=== PATIENT | male | born 1980 | race American Indian/Alaskan Native ===

== ENCOUNTER 2016-09-05 00:24 | Emergency (ER) | payer OTHER ==
[2016-09-05] MEDS ORDERED: TYLENOL ONE (00:37)
[2016-09-05] MEDS ORDERED: TYLENOL PO ONE (00:49)
[2016-09-05 01:23] LABS: Hematocrit 45.9 % (35.5-45.6); Hemoglobin 15.4 gm/dl (11.8-15.2); Mean Corpuscular HGB Conc 34 % (32-34); Mean Corpuscular Hemoglobin 28 pg (28-32); Mean Corpuscular Volume 83 fl (84-94); Platelet Count 176 K/mm3 (140-440); Red Blood Count 5.54 M/mm3 (3.65-5.03); Red Cell Distribution Width 13.6 % (13.2-15.2); White Blood Count 10.6 K/mm3 (4.5-11.0)
[2016-09-05 01:36] LABS: Alanine Aminotransferase 33 units/L (7-56); Albumin 4.4 g/dL (3.9-5); Albumin/Globulin Ratio 1.5 %; Alkaline Phosphatase 92 units/L (35-129); Anion Gap 18 mmol/L; BUN/Creatinine Ratio 13.63; Bilirubin,Total 0.9 mg/dL (0.1-1.2); Blood Urea Nitrogen 15 mg/dL (9-20); Calcium 9.5 mg/dL (8.4-10.2); Carbon Dioxide 24 mmol/L (22-30); Chloride 99.5 mmol/L (98-107); Glucose 121 mg/dL (75-100); Lipase 17 units/L (13-60); Potassium 3.8 mmol/L (3.6-5.0); Sodium 138 mmol/L (137-145); Total Protein 7.3 g/dL (6.3-8.2)
--- NOTE | 2016-09-05 02:14 | XRay Report ---
FINAL REPORT PROCEDURE: XR ABDOMEN 2V TECHNIQUE: Abdominal radiograph, single supine AP view. HISTORY: abd pn, send for report COMPARISON: No prior studies are available for comparison. FINDINGS: Bowel gas pattern:There is no bowel obstruction, fecal impaction or bowel wall thickening.. Masses or calcifications:None. Bony structures:No significant abnormality. Other:There is no free air.. IMPRESSION: No acute abnormality
[2016-09-05 03:20] LABS: Bacteria,Urine 1+ /HPF (Negative); Bilirubin,Urine NEG (Negative); Blood,Urine SM (Negative); Ketones,Urine NEG (Negative); Leukocyte Esterase,Urine NEG (Negative); Mucus,Urine FEW /HPF; Nitrite,Urine NEG (Negative); Protein,Urine <15 mg/dL mg/dL (Negative); Urobilinogen,Urine < 2.0 mg/dL (<2.0)
[2016-09-05] MEDS ORDERED: ZOFRAN IV ONE (03:28)
[2016-09-05] MEDS ORDERED: MORPHINE IV ONE (03:28)
--- NOTE | 2016-09-05 03:36 | Emergency Department Report ---
ED Abdominal Pain HPI - General Chief Complaint: Abdominal Pain Stated Complaint: STOMACH PAIN/CRAMPS Time Seen by Provider: 09/05/16 03:29 Source: patient Mode of arrival: Ambulatory Limitations: No Limitations - History of Present Illness Initial Comments: This is a previously healthy 36-year-old gentleman who reports gradual onset epigastric pain over the last 24 hours. He states that it was initially bearable but is gone to the point where it is completely unbearable. He states that the pain is only in the epigastric region. He's has anorexia due to it. He is not having any nausea vomiting. He denies any diarrhea. He denies any fevers or trauma. He denies any history of GI ulcers in general. He has not had any abdominal surgeries before. He describes the pain is sharp in nature. MD Complaint: abdominal pain Severity scale (0 -10): 7 - Related Data Previous Rx's Medication Instructions Recorded Last Taken Type Omeprazole 40 mg PO DAILY #30 capsule. 09/05/16 Unknown Rx Ondansetron [Zofran TAB] 4 mg PO Q8HR PRN #10 tablet 09/05/16 Unknown Rx oxyCODONE /ACETAMINOPHEN [Percocet 1 tab PO Q4HR PRN #30 tab 09/05/16 Unknown Rx 5/325] Allergies Allergy/AdvReac Type Severity Reaction Status Date / Time No Known Allergies Allergy Verified 09/05/16 00:38 ED Review of Systems ROS: Stated complaint: STOMACH PAIN/CRAMPS Other details as noted in HPI Comment: All other systems reviewed and negative Constitutional: denies: chills, fever Eyes: denies: eye pain, eye discharge, vision change ENT: denies: ear pain, throat pain Respiratory: denies: cough, shortness of breath, wheezing Cardiovascular: denies: chest pain, palpitations Endocrine: no symptoms reported Gastrointestinal: abdominal pain, other (anorexia). denies: nausea, diarrhea Genitourinary: denies: urgency, dysuria Musculoskeletal: denies: back pain, joint swelling, arthralgia Skin: denies: rash, lesions Neurological: denies: headache, weakness, paresthesias Psychiatric: denies: anxiety, depression Hematological/Lymphatic: denies: easy bleeding, easy bruising ED Past Medical Hx - Past Medical History Previous Medical History?: No - Surgical History Past Surgical History?: Yes Hx Appendectomy: Yes - Social History Smoking Status: Never Smoker Substance Use Type: None - Medications Home Medications: Home Medications Medication Instructions Recorded Confirmed Last Taken Type Omeprazole 40 mg PO DAILY #30 capsule. 09/05/16 Unknown Rx Ondansetron [Zofran TAB] 4 mg PO Q8HR PRN #10 tablet 09/05/16 Unknown Rx oxyCODONE /ACETAMINOPHEN [Percocet 1 tab PO Q4HR PRN #30 tab 09/05/16 Unknown Rx 5/325] ED Physical Exam - General Limitations: No Limitations General appearance: alert, in distress (due to pains) - Head Head exam: Present: atraumatic, normocephalic - Eye Eye exam: Present: normal appearance, EOMI. Absent: scleral icterus - ENT ENT exam: Present: normal exam, normal orophraynx, mucous membranes moist - Neck Neck exam: Present: normal inspection. Absent: tenderness, lymphadenopathy - Respiratory Respiratory exam: Present: normal lung sounds bilaterally. Absent: respiratory distress, wheezes, rales - Cardiovascular Cardiovascular Exam: Present: regular rate, normal rhythm. Absent: systolic murmur, diastolic murmur, rubs, gallop - GI/Abdominal GI/Abdominal exam: Present: soft, tenderness (epigastric region with some voluntary guarding. No rebound is appreciated no organomegaly is appreciated.) , normal bowel sounds - Rectal Rectal exam: Present: deferred - Extremities Exam Extremities exam: Present: normal inspection - Back Exam Back exam: Present: normal inspection - Neurological Exam Neurological exam: Present: alert, oriented X3 - Psychiatric Psychiatric exam: Present: normal affect, normal mood - Skin Skin exam: Present: warm, dry, intact, normal color. Absent: rash ED Course Vital Signs 09/05/16 09/05/16 09/05/16 00:27 01:47 02:00 Temperature 98.1 F Pulse Rate 98 H 76 75 Respiratory 20 41 H 25 H Rate Blood Pressure 123/81 Blood Pressure 167/98 [Right] O2 Sat by Pulse 100 98 Oximetry 09/05/16 09/05/16 02:30 03:00 Temperature Pulse Rate 79 88 Respiratory 29 H 32 H Rate Blood Pressure 133/83 124/83 Blood Pressure [Right] O2 Sat by Pulse 96 95 Oximetry - Reevaluation(s) Reevaluation #1: 09/05/16 04:36 This patient's pain is way out of proportion what I would anticipate with lab studies that I am seeing. He is legitimately uncomfortable. His pain is very reproducible in the epigastric region. Plain film is unremarkable in general. With normal bowel gas pattern. I would question peptic ulcer disease but I'm not used to seeing pains be so reproducible with palpation. I did give Protonix for this possibility. Awaiting CT scan for further evaluation due to the level of his discomfort. Labs are unremarkable as is urinalysis. Reevaluation #2: 09/05/16 06:02 CT examination read by the radiologist demonstrates 2 mm stone in the upper pole of the left kidney. Next mucosal thickening of the stomach antrum. This could be due to gastritis. There is no mass or obstruction however. There is a comment about faint induration of the mesentery with mild adenopathy suggesting possible mesenteric adenitis versus mesenteric panniculitis. Reevaluation #3: 09/05/16 06:28 CT results are noted. This correlates well with what I would anticipate for patient's pain. I suspect he does have a component of gastritis. I suspect this is a today's mesenteric adenitis as well. Mesenteric adenitis is reasonable exfoliation for his pain in his abdomen. He subjectively is feeling much improved after his medications here. I will continue to have him on an antacid as well as pain medication for the next couple of days. I do not see a surgical etiology or concern at this point. Patient's been instructed strictly though should his pain persist or worsen that he does need to have return visit for reevaluation. He agrees to do This. He is otherwise stable and safe for home. ED Medical Decision Making - Lab Data Result diagrams: 09/05/16 00:59 09/05/16 00:59 Critical care attestation.: If time is entered above; I have spent that time in minutes in the direct care of this critically ill patient, excluding procedure time. ED Disposition Clinical Impression: Mesenteric adenitis Gastritis Qualifiers: Gastritis type: unspecified gastritis Chronicity: acute Gastritis bleeding: without bleeding Qualified Code(s): K29.00 - Acute gastritis without bleeding Disposition: DISCHARGED TO HOME OR SELFCARE Is pt being admited?: No Does the pt Need Aspirin: No Condition: Stable Instructions: Mesenteric Adenitis (ED), Gastritis (ED), Diet for Ulcers and Gastritis (ED) Additional Instructions: Eat a bland diet. Return if you have worsening pains. Prescriptions: Omeprazole 40 mg PO DAILY #30 capsule. Ondansetron [Zofran TAB] 4 mg PO Q8HR PRN #10 tablet PRN Reason: Nausea oxyCODONE /ACETAMINOPHEN [Percocet 5/325] 1 tab PO Q4HR PRN #30 tab PRN Reason: Pain Referrals: PRIMARY CARE, [Primary Care Provider] - 3-5 Days Forms: Work/School Release Form(ED) Time of Disposition: 06:09
[2016-09-05] MEDS ORDERED: PROTONIX IV ONE (03:37)
[2016-09-05] MEDS ORDERED: NACL 0.9% 1000 ML 1,000 ML IV ONE (03:37)
[2016-09-05 03:48] LABS: Anisocytosis 1+; Blastocytes % (Manual) 0 %; Hypochromasia Few
[2016-09-05 03:49] LABS: Diff Status Complete
--- NOTE | 2016-09-05 05:44 | Cat Scan Report ---
FINAL REPORT PROCEDURE: CT ABDOMEN PELVIS W CON TECHNIQUE: Computerized axial tomography of the abdomen and pelvis was performed after the IV injection of iodinated nonionic contrast. HISTORY: upper abd pains COMPARISON: No prior studies are available for comparison. FINDINGS: Visualized lower thorax: No significant abnormality. Liver: Normal size and attenuation. Spleen: Normal size and attenuation. Gallbladder and biliary system: Normal. Pancreas: Normal. Adrenals: Normal. Kidneys: There is a 2 millimeter stone in the upper pole the left kidney. There are no ureteral stones. There is no hydronephrosis.. GI tract: There is mucosal thickening and narrowing of the stomach antrum which could be due to gastritis. There is no mass or obstruction. The small bowel is unremarkable. There is no colonic obstruction or colitis. There is no diverticulosis or diverticulitis. The appendix is not identified. There is no indirect evidence of appendicitis. Lymph nodes and mesentery: There is faint induration of the mesentery with mild adenopathy suggesting possible mesenteric adenitis or mesenteric panniculitis.. Vasculature: Normal. Bladder: Normal. Reproductive organs: Normal. Peritoneum: There is no ascites, free air, abscess or adenopathy.. Musculoskeletal structures: No significant abnormality. Other: There is an umbilical hernia defect containing fat only.. IMPRESSION: There is a 2 millimeter stone in the upper pole the left kidney. There are no ureteral stones. There is no hydronephrosis.. There is mucosal thickening and narrowing of the stomach antrum which could be due to gastritis. There is no mass or obstruction. The small bowel is unremarkable. There is no colonic obstruction or colitis. There is no diverticulosis or diverticulitis. The appendix is not identified. There is no indirect evidence of appendicitis. There is faint induration of the mesentery with mild adenopathy suggesting possible mesenteric adenitis or mesenteric panniculitis.. There is no ascites, free air, abscess or adenopathy.. There is an umbilical hernia defect containing fat only..
[2016-09-05] MEDS ORDERED: DILAUDID ONE (06:09)
[2016-09-05] MEDS ORDERED: DILAUDID IV ONE (06:17)
[2016-09-05 06:43] VITALS: BP 138/94
== END 2016-09-05 06:55 | disposition home or self-care (01) ==
LOC: ED 00:24
DX: K29.00 Acute gastritis without bleeding (principal); I88.0 Nonspecific mesenteric lymphadenitis
CPT/HCPCS: 36415; 74020; 74177; 80053; 81001; 83690; 85007; 85025; 96361; 96374; 96375; 99284; C9113; J1170; J2270; J2405; J7030; Q9967